=== PATIENT | female | born 1955 | race Caucasian/White ===

== ENCOUNTER → 2016-07-16 | Outpatient (CLI) | payer BC ==
[~2016-07-16] MED LIST: AMBIEN 5MG TABLE5 MG PO; ASPIRIN 81M81 MG/TA2 PO; CALCIUM 600/VIT1 CAP PO; CALCIUM ASCORB500 MG PO; CIPRO 500MG TA500 MG PO; CYMBALTA 30MG30 MG PO; DIFLUCAN50 MG; FLAGYL500 MG PO; FLEXERIL10 MG PO; FLONASE NASAL S16 GM NS; LISINOPRIL20 MG PO; LORTAB 5/500 501 TAB PO; LYRICA 75MG CAP75 MG PO; MAG-OX 400400 MG/TAB PO; MOBIC15 MG PO; NAPROSYN PO; NORCO 325 MG-51 TAB PO; PRIL40 PO; PRILOSEC10 MG; PROBIOTIC-MAJOR PO; PROLIA60 MG/ML SC; PROTONIX20 MG PO; TESSALON P100 MG/CAP PO; ULTRAM 50MG TAB50 MG PO; VITAMIN D2000 I1 PO; VITAMIN D32000 IU PO; ZANTAC 150MG T150 MG PO; ZESTRIL 20MG TA20 MG PO
== END ==
LOC: COL.RAD 07:36
DX: M25.551 Pain in right hip (principal)
CPT/HCPCS: J3301; Q9967

== ENCOUNTER → 2016-11-05 | Outpatient (CLI) | payer BC | LOC: COL.RAD 08:45 | DX: M25.551 Pain in right hip (principal); M25.542 Pain in joints of left hand | CPT/HCPCS: J3301; Q9967 ==

== ENCOUNTER → 2016-12-06 | Outpatient (CLI) | payer BC | LOC: MC.RAD 07:20 | DX: Z12.31 Encounter for screening mammogram for malignant neoplasm of breast (principal) ==

== ENCOUNTER → 2018-07-28 | Outpatient (CLI) | payer MEDICARE, OTHER | LOC: COL.RAD 09:25 | DX: K76.0 Fatty (change of) liver, not elsewhere classified (principal) ==

== ENCOUNTER → 2022-02-14 | Outpatient (CLI) | payer MEDICARE, OTHER ==
[~2022-02-14] MED LIST changes: +ZANTAC 150150 MG
== END ==
LOC: MC.RAD 10:48
DX: Z12.31 Encounter for screening mammogram for malignant neoplasm of breast (principal)

== ENCOUNTER → 2023-05-05 | Outpatient (CLI) | payer MEDICARE, OTHER ==
[2005-08-16 12:15] VITALS: BP 91/63; PULSE 56; TEMP 97.4
== END ==
LOC: MC.RAD 10:30
DX: Z12.31 Encounter for screening mammogram for malignant neoplasm of breast (principal)